=== PATIENT | female | born 1955 | race Caucasian/White ===

== ENCOUNTER 2016-10-22 20:16 | Emergency (ER) | payer BC ==
[2016-10-22] MEDS ORDERED: Ibuprofen TAB* 600 MG PO ONE (21:30)
--- NOTE | 2016-10-22 21:33 | UC ---
Elbow Pain - HPI Summary HPI Summary: patient fell on a rock, landed on the left elbow, 2 minor cuts noted, pocket of eccymosis and swelling on posterior radius, limited extension - History of Current Complaint Chief Complaint: UCUpperExtremity Stated Complaint: ELBOW INJURY FROM FALL Time Seen by Provider: 10/22/16 21:28 Hx Obtained From: Patient ?: No Onset/Duration: Hours Severity Currently: Moderate Location Of Pain: Is Discrete @ - elbow Character: Dull, Aching, Throbbing Aggravating Factor(s): Movement Alleviating Factor(s): Ice, Nothing Associated Signs And Symptoms: Positive: Swelling, Bruising, Weakness, Numbness/ Tingling - Allergies/Home Medications Allergies/Adverse Reactions: Allergies Allergy/AdvReac Type Severity Reaction Status Date / Time No Known Allergies Allergy Verified 03/29/15 16:14 Home Medications: Home Medications Gardenia (Zingiber Officinalis) [Gardenia] 500 mg PO 10/22/16 [History] PMH/Surg Hx/FS Hx/Imm Hx Previously Healthy: Yes - Surgical History Surgical History: Yes Surgery Procedure, Year, and Place: KIDNET STONE REMOVED RIGHT KIDNEY - Family History Known Family History: Negative: Cardiac Disease, Hypertension - Social History Alcohol Use: Rare Substance Use Type: None Smoking Status (MU): Never Smoked Tobacco Review of Systems Constitutional: Negative Skin: Rash, Bruising Eyes: Negative ENT: Negative Respiratory: Negative Cardiovascular: Negative Gastrointestinal: Negative Genitourinary: Negative Motor: Negative Musculoskeletal: Arthralgia, Decreased ROM - elbow, Edema, Myalgia Neurological: Negative Psychological: Negative All Other Systems Reviewed And Are Negative: Yes Physical Exam Triage Information Reviewed: Yes Appearance: Well-Appearing, Well-Nourished, Pain Distress Vital Signs: Initial Vital Signs Temp 97.7 F 10/22/16 20:30 Pulse 103 10/22/16 20:30 Resp 18 10/22/16 20:30 Pulse Ox 100 10/22/16 20:30 Vital Signs Reviewed: Yes Eye Exam: Normal Eyes: Positive: Conjunctiva Clear ENT: Positive: Hearing grossly normal, Pharynx normal, TMs normal Dental Exam: Normal Neck exam: Normal Neck: Positive: Supple, Nontender, No Lymphadenopathy Respiratory Exam: Normal Respiratory: Positive: Chest non-tender, Lungs clear, Normal breath sounds Cardiovascular Exam: Normal Cardiovascular: Positive: No Murmur, Pulses Normal, Tachycardia Abdominal Exam: Normal Abdomen Description: Positive: Nontender, No Organomegaly, Soft Bowel Sounds: Positive: Present Musculoskeletal Exam: Normal Musculoskeletal: Positive: Strength Intact, ROM Intact, No Edema Neurological Exam: Normal Neurological: Positive: Alert, Muscle Tone Normal Psychological Exam: Normal Skin Exam: Normal Elbow Pain Course/Dx - Course Course Of Treatment: hx obtained, exam performed, meds reviewed, ibuprofen and ice for pain and swelling, xray was negative, sling and dmitriy applied, referred to ortho if pain persists. - Differential Dx/Diagnosis Differential Diagnosis/HQI/PQRI: Contusion, Fracture (Closed), Joint Effusion, Sprain, Strain Provider Diagnoses: elbow contusion left. abraision. ecchymosis Discharge - Discharge Plan Condition: Stable Disposition: HOME Patient Education Materials: Contusion in Adults (ED) Referrals: Brigette Thorne MD [Primary Care Provider] - Denis Geller MD [Medical Doctor] - Additional Instructions: 1. wear the dmitriy to rduce the swelling, use the sling for the next few days to rest. 2. Perform ROm a few times a day to keep the motion 3. Follow up with ortho if your pain is not improving.
--- NOTE | 2016-10-22 21:59 | RAD ---
INDICATION: Pain after fall onto left elbow COMPARISON: None. TECHNIQUE: 4 views left elbow. REPORT: The visualized bones of the left elbow are well corticated and properly aligned. There is no radiographically apparent fracture or dislocation. There is no radiographic evidence of pathologic joint effusion. IMPRESSION: Normal radiograph of the left elbow. If the patient's symptoms persist further follow-up imaging is recommended.
== END 2016-10-22 22:15 | disposition home or self-care (01) ==
LOC: UCEAST 20:16
DX: S50.312A Abrasion of left elbow, initial encounter (principal); W18.39XA Other fall on same level, initial encounter; Y93.9 Activity, unspecified; Y92.89 Other specified places as the place of occurrence of the external cause; Y99.8 Other external cause status
CPT/HCPCS: 99212; A9270-GY; G0463